=== PATIENT | female | born 1965 | race Caucasian/White ===

== ENCOUNTER 2024-01-17 16:07 | Emergency (ER) | payer OTHER, SELFPAY ==
[2024-01-17] VITALS (16 sets, daily range): BP systolic 100–125; BP diastolic 64–77; PULSE 76–87; RESP 16; TEMP 36.6; O2SAT 97–100; BMI 25.0
--- NOTE | 2024-01-17 16:28 | ED.GENADULT ---
HPI - General Adult General Chief complaint: Chest Pain Stated complaint: Chest pain Time Seen by Provider: 01/17/24 16:08 History of Present Illness HPI narrative: Reporting chest pain on and off since last night. Hx of similar episodes, usually only last a few hours. Typically anxiety related . No personal heart hx. Long family history of cardiac issues. Reports a lot of stress going on at home currently 58-year-old woman presenting to the emergency department with concern of squeezing chest pain on and off since yesterday. Has had similar experiences at generally has chalked them up to anxiety. Is having more stress in the home currently and really think that is probably what it is but in talking to her adult children they convinced her to be evaluated. She is not short of breath. During exam she does note that her discomfort is somewhat pleuritic. 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 Did not have a sense of palpitations/irregular heartbeats. No rashes. She has a little sunburn currently. Is right-handed and does note that she has been having some upper back discomfort thinking that maybe she got something going on with her neck. During exam she may use is as to whether not that might be related to her chest discomfort. No cough or cold symptoms recently. No trauma. Concerning in this case partly because just been on and off lasting much longer than usual. 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 Related Data Home Medications ?Medication ?Instructions ?Recorded ?Confirmed No Known Home Medications 01/17/24 01/17/24 Allergies Allergy/AdvReac Type Severity Reaction Status Date / Time No Known Drug Allergies Allergy Verified 01/17/24 16:17 Review of Systems Status of ROS: Reports: 6 or more systems reviewed and unremarkable except as noted in History and below PFSH PFS Social History Smoking Status: Never smoker Do you use any of these nicotine containing products: None How often do you have a drink containing alcohol: never How often do you have six or more drinks on one occasion: Never AUDIT-C Alcohol total score: 0 Non-prescribed substance use: denies use Exam Narrative: Exam Narrative: Pleasant. NAD. Breathing easily. Fair skin which does look slightly sunburned. Skin is quite warm. No rashes. Lower extremities without edema. Generally well perfused. Negative Homans. Lungs are clear. Deep inspiratory effort rib produces some discomfort in her anterior chest she notes. She is quite sore to palpation over the medial periscapular musculature/rhomboids. Does not have elevated JVD. Breath sounds are also present throughout her lung. Heart with regular rate and rhythm without murmur rub or gallop. Abdomen is soft and nontender. Const: Vital Signs, click to edit/add: Vital Signs - 24 hr 01/17/24 16:14 01/17/24 16:30 01/17/24 16:31 Temperature 97.9 F Pulse Rate 83 82 Pulse Rate [Pulse Oximeter] 86 Pulse Rate [orthos tatic lying Pulse Oximeter] Pulse Rate [orthos tatic sitting Puls e Oximeter] Pulse Rate [orthos tatic standing Pul se Oximeter] Respiratory Rate 16 Blood Pressure 106/69 Blood Pressure [Ri ght Upper Arm] 116/77 Blood Pressure [or thostatic lying Ri ght Arm] Blood Pressure [or thostatic sitting Right Arm] Blood Pressure [or thostatic standing Right Arm] Pulse Oximetry 99 99 98 Oxygen Delivery Me thod Room Air 01/17/24 16:45 01/17/24 17:00 01/17/24 17:00 Temperature Pulse Rate 79 85 Pulse Rate [Pulse Oximeter] Pulse Rate [orthos tatic lying Pulse Oximeter] Pulse Rate [orthos tatic sitting Puls e Oximeter] Pulse Rate [orthos tatic standing Pul se Oximeter] Respiratory Rate Blood Pressure Blood Pressure [Ri ght Upper Arm] Blood Pressure [or thostatic lying Ri ght Arm] Blood Pressure [or thostatic sitting Right Arm] Blood Pressure [or thostatic standing Right Arm] Pulse Oximetry 100 100 100 Oxygen Delivery Me thod 01/17/24 17:02 01/17/24 17:03 01/17/24 17:04 Temperature Pulse Rate 81 86 Pulse Rate [Pulse Oximeter] Pulse Rate [orthos tatic lying Pulse Oximeter] Pulse Rate [orthos tatic sitting Puls e Oximeter] Pulse Rate [orthos tatic standing Pul se Oximeter] Respiratory Rate Blood Pressure 115/65 125/67 114/75 Blood Pressure [Ri ght Upper Arm] Blood Pressure [or thostatic lying Ri ght Arm] Blood Pressure [or thostatic sitting Right Arm] Blood Pressure [or thostatic standing Right Arm] Pulse Oximetry 99 99 Oxygen Delivery Me thod 01/17/24 17:05 01/17/24 17:11 01/17/24 17:15 Temperature Pulse Rate 77 77 Pulse Rate [Pulse Oximeter] Pulse Rate [orthos tatic lying Pulse Oximeter] 87 Pulse Rate [orthos tatic sitting Puls e Oximeter] 85 Pulse Rate [orthos tatic standing Pul se Oximeter] 86 Respiratory Rate Blood Pressure Blood Pressure [Ri ght Upper Arm] Blood Pressure [or thostatic lying Ri ght Arm] 115/65 Blood Pressure [or thostatic sitting Right Arm] 125/67 Blood Pressure [or thostatic standing Right Arm] 114/75 Pulse Oximetry [address] 01/17/24 17:30 01/17/24 17:31 01/17/24 17:45 Temperature Pulse Rate 77 78 79 Pulse Rate [Pulse Oximeter] Pulse Rate [orthos tatic lying Pulse Oximeter] Pulse Rate [orthos tatic sitting Puls e Oximeter] Pulse Rate [orthos tatic standing Pul se Oximeter] Respiratory Rate Blood Pressure 109/64 Blood Pressure [Ri ght Upper Arm] Blood Pressure [or thostatic lying Ri ght Arm] Blood Pressure [or thostatic sitting Right Arm] Blood Pressure [or thostatic standing Right Arm] Pulse Oximetry [address] 01/17/24 18:00 01/17/24 18:01 Temperature Pulse Rate 76 79 Pulse Rate [Pulse Oximeter] Pulse Rate [orthos tatic lying Pulse Oximeter] Pulse Rate [orthos tatic sitting Puls e Oximeter] Pulse Rate [orthos tatic standing Pul se Oximeter] Respiratory Rate Blood Pressure 100/65 Blood Pressure [Ri ght Upper Arm] Blood Pressure [or thostatic lying Ri ght Arm] Blood Pressure [or thostatic sitting Right Arm] Blood Pressure [or thostatic standing Right Arm] Pulse Oximetry [address] Documenting provider has reviewed patient's vital signs: yes Course Vital Signs Vital signs: Initial Vital Signs Temperature 97.9 F 01/17/24 16:14 Temperature Source Temporal Artery Scan 01/17/24 16:14 Pulse Rate 86 01/17/24 16:14 Pulse Rhythm Regular 01/17/24 16:14 Pulse Strength 3+ Normal 01/17/24 16:14 Respiratory Rate 16 06/18/24 16:14 Blood Pressure 116/77 01/17/24 16:14 Blood Pressure Mean 90 01/17/24 16:14 Blood Pressure Position Semi-Fowlers 01/17/24 16:14 Pulse Oximetry 99 01/17/24 16:14 Oxygen Delivery Method Room Air 01/17/24 16:14 Vital Signs Temperature 97.9 F 01/17/24 16:14 Pulse Rate 86 01/17/24 16:14 Respiratory Rate 16 01/17/24 16:14 Blood Pressure 116/77 01/17/24 16:14 Pulse Oximetry 99 01/17/24 16:14 Oxygen Delivery Method Room Air 01/17/24 16:14 Temperature 97.9 F 01/17/24 16:14 Pulse Rate 79 01/17/24 18:01 Respiratory Rate 16 01/17/24 16:14 Blood Pressure 100/65 01/17/24 18:01 Pulse Oximetry 97 01/17/24 18:01 Oxygen Delivery Method Room Air 01/17/24 16:14 Medical Decision Making MDM Narrative Medical decision making narrative: Some component of her discomfort may be musculoskeletal. Does give some pleuritic nature. Differential also includes pneumothorax or pneumomediastinum. Vascular dissection. I doubt ischemic cardiovascular event but we will evaluate. Pulmonary embolus as well. Otherwise for radicular pain/pericarditis or costochondritis. Pain does not seem to change with positions. Might be volume down or anemic given her complaints of lightheadedness. Are checking orthostatics to determine need for IV hydration. Further review does realize that she has more discomfort when lying down than when sitting up. Orthostatics incidentally were by the numbers normal as well as being asymptomatic Labs are reassuring with normal D-dimer and laboratory markers and cardiac labs. No events on monitor. See patient discharge plan for further discussion Medical Records Medical records reviewed: Yes I reviewed the patient's medical records Lab Data Lab results reviewed: Yes I reviewed the patient's lab results Labs: Lab Results 01/17/24 01/17/24 Range/Units 16:25 16:25 WBC 7.16 (4.50-11.00) K/uL RBC 4.21 (4.00-5.20) m/uL Hgb 12.0 (12.0-16.0) gm/dL Hct 38.1 (33.0-51.0) % MCV 91 (80-100) fL MCH 29 (26-34) pg MCHC 32 (32-36) gm/dL RDW Coeff of Albaro 13.1 (11.5-15.5) % Plt Count 171 (140-440) K/uL Neut % (Auto) 82.0 H (42.0-72.0) % Lymph % (Auto) 11.6 L (20-44) % [place] % (Auto) 5.3 (0.0-11.0) % Eos % (Auto) 1.0 (0.0-7.0) % Baso % (Auto) 0.0 (0.0-3.0) % Neut # (Auto) 5.90 (1.7-7.0) K/uL Lymph # (Auto) 0.80 L (0.90-2.90) K/uL [place] # (Auto) 0.40 (0.00-0.90) K/UL Eos # (Auto) 0.07 (0.00-0.50) K/uL Baso # (Auto) 0.00 (0.00-0.30) K/uL Abs Immat Gran (auto) 0.01 (0.00-0.30) K/uL Imm/Tot Granulo (auto) 0.1 % D-Dimer Quant (PE/DVT) 0.17 (0.00-0.50) ug/ml Sodium 138 (135-149) mmol/L Potassium 3.8 (3.6-5.1) mmol/L Chloride 103 (96-114) mmol/L Carbon Dioxide 30 (20-32) mmol/L Anion Gap 5 L (7-15) mEq/L BUN 14 (7-30) mg/dL Creatinine 0.8 (0.5-1.5) mg/dL Estimated Creat Clear 73.51 Estimated GFR 86 ml/min Glucose 166 H (60-115) mg/dL Calcium 8.8 (8.4-10.6) mg/dL Troponin I < 0.01 L (0.01-0.04) ng/mL C-Reactive Protein < 0.5 L (0.5-1.0) mg/dL NT-Pro-B Natriuret Pep 63 Cancelled pg/mL ECG Data Attestation: I personally reviewed and interpreted this ECG as follows: (Normal sinus. RSR' rate of 81. Prominent P-wave. No prior EKG for comparison) Discharge Plan Discharge Clinical Impression: Atypical chest pain, Upper back pain Patient Disposition: Home w/ Parent or Adult Condition: Stable Additional Instructions: You seem to have some features of pericarditis. Possibly pleuritis otherwise. Stay well-hydrated. Consider taking anti-inflammatory regularly dosed for 4-5 days. This could be ibuprofen or naproxen maybe with a little food. If you do choose to take ibuprofen I would take 400-600 mg 3 times daily or consider also naproxen 375 mg twice daily. Do not take both at the same time. Return for marked increase in persistent pain, increasing shortness of breath, associated fever. See handout for stretches for the upper back. Consider doing these once or twice daily over the next week to indefinitely Prescriptions: No Action No Known Home Medications Follow Up/Referrals: Provider,Not a Local [Primary Care Provider] - Stand Alone Forms: [employer] Info Instructions
--- NOTE | 2024-01-17 17:00 | CRLHL7_ITS ---
For Patients: As a result of the Century Cures Act, medical imaging exams and procedure reports are released immediately into your electronic medical record. You may view this report before your referring provider. If you have questions, please contact your health care provider. INDICATION: Chest pain. TECHNIQUE: Chest 1 views. COMPARISON: None. FINDINGS: Cardiovascular and mediastinum: Heart size and vasculature are normal in caliber and appearance. Lungs and pleural spaces: Lungs are clear. No sign of infiltrate or mass. No sign of pleural effusion. No pneumothorax. Bones and soft tissues: No significant findings. IMPRESSION: No acute or significant findings. Dictated by Paddy Foster MD @ 01/17/2024 5:33:08 PM (Electronically Signed)
[2024-01-17 17:08] LABS: Eosinophils Absolute Auto 0.07 K/uL (0.00-0.50); Hematocrit 38.1 % (33.0-51.0); Immature Granulocytes Abs Auto 0.01 K/uL (0.00-0.30); Immature Granulocytes Pct Auto 0.1 %; Lymphocytes Percent Auto 11.6 % (20-44); Mean Corpuscular HGB Conc 32 gm/dL (32-36); Mean Corpuscular Hemoglobin 29 pg (26-34); Mean Corpuscular Volume 91 fL (80-100); Monocytes Percent Auto 5.3 % (0.0-11.0); Platelet Count* 171 K/uL (140-440); RDW Coefficient of Variation % 13.1 % (11.5-15.5); Red Blood Count 4.21 m/uL (4.00-5.20); White Blood Count* 7.16 K/uL (4.50-11.00)
[2024-01-17 17:15] LABS: Slide Review Reflex No
[2024-01-17 17:16] LABS: Chloride* 103 mmol/L (96-114); Potassium* 3.8 mmol/L (3.6-5.1); Sodium* 138 mmol/L (135-149)
[2024-01-17 17:19] LABS: Creatinine* 0.8 mg/dL (0.5-1.5); Est. Creatinine Clearance* 73.51; Estimated Glomerular Filt Rate 86 ml/min
[2024-01-17 17:20] LABS: Anion Gap 5 mEq/L (7-15); Blood Urea Nitrogen* 14 mg/dL (7-30); Calcium* 8.8 mg/dL (8.4-10.6); Carbon Dioxide* 30 mmol/L (20-32); Glucose* 166 mg/dL (60-115)
[2024-01-17 17:46] LABS: C Reactive Protein* < 0.5 mg/dL (0.5-1.0); NT Pro B Type NatriureticPept* 63 pg/mL; Troponin I* < 0.01 ng/mL (0.01-0.04)
[2024-01-17 18:01] LABS: D Dimer Quantitative* 0.17 ug/ml (0.00-0.50)
== END 2024-01-17 18:52 | disposition home or self-care (01) ==
PROVIDERS: Emergency Provider Family Medicine
DX: R07.9 Chest pain, unspecified (principal)
CPT/HCPCS: 36415; 71045; 80048; 83880; 84484; 85025; 85379; 86140; 94761; 99284